=== PATIENT | male | born 1990 | race Caucasian/White ===

== ENCOUNTER 2018-11-01 18:07 | Emergency (ER) | payer BC, OTHER ==
[2018-11-01 18:17] VITALS: BP 109/73; RESP 16; TEMP 98.5; O2SAT 99
--- NOTE | 2018-11-01 19:06 | ED PDOC ---
HPI: CCC, URI, Sore Throat Time Seen by Provider: 11/01/18 18:14 Chief Complaint (Nursing): Chest Pain Chief Complaint (Provider): Cough History Per: Patient History/Exam Limitations: no limitations Onset/Duration Of Symptoms: Days (over 7x days) Current Symptoms Are (Timing): Still Present Associated Symptoms: Other (chest pain with coughing) Severity: Moderate Additional Complaint(s): 28 year old male with no past medical history presents to the ED for an evaluation of a cough productive of sputum, ongoing for over 7x days. Patient states that yesterday, he began to develop bilateral chest pain, intermittent, present only with cough. Patient states that the cough worsened today, prompting ED visit. Patient denies having fevers, hemoptysis, shortness of breath, weakness, leg pain, and rashes. PMD: None provided Past Medical History Reviewed: Historical Data, Nursing Documentation, Vital Signs Vital Signs: Last Vital Signs Temp 98.5 F 11/01/18 18:17 Pulse 63 11/01/18 18:17 Resp 16 11/01/18 18:17 BP 109/73 11/01/18 18:17 Pulse Ox 99 11/01/18 18:17 LUCHO report viewed?: Yes - Medical History PMH: No Chronic Diseases - Surgical History Surgical History: No Surg Hx - Family History Family History: States: No Known Family Hx - Social History Current smoker - smoking cessation education provided: Yes (6x cigarettes daily for 7x years) Alcohol: None Drugs: Denies - Immunization History Hx Tetanus Toxoid Vaccination: No (UNKNOWN) - Home Medications Home Medications: Ambulatory Orders Medication Instructions Recorded Cephalexin [Keflex] 500 mg PO QID #20 cap 07/04/14 Albuterol HFA [Ventolin HFA 90 2 puff IH [id number] PRN #120 puff 11/01/18 mcg/actuation (8 g)] Azithromycin [Zithromax] 250 mg PO DAILY #6 tab 11/01/18 Promethazine DM [Phenergan DM 5 - 10 ml PO Q8 PRN #120 ml 11/01/18 Syrup] - Allergies Allergies/Adverse Reactions: Allergies Allergy/AdvReac Type Severity Reaction Status Date / Time No Known Allergies Allergy Verified 11/01/18 18:08 Review of Systems ROS Statement: Except As Marked, All Systems Reviewed And Found Negative Constitutional: Negative for: Fever Cardiovascular: Positive for: Chest Pain (bilateral chest pain, intermittent, present only with cough) Respiratory: Positive for: Cough, Sputum. Negative for: Shortness of Breath, Hemoptysis Musculoskeletal: Negative for: Leg Pain Neurological: Negative for: Weakness Physical Exam - Reviewed Nursing Documentation Reviewed: Yes Vital Signs Reviewed: Yes - Physical Exam Appears: Positive for: Well, Non-toxic, No Acute Distress Head Exam: Positive for: ATRAUMATIC, NORMOCEPHALIC Eye Exam: Positive for: Normal appearance, EOMI, PERRL ENT: Positive for: Normal ENT Inspection. Negative for: Pharyngeal Erythema Cardiovascular/Chest: Positive for: Regular Rate, Rhythm Respiratory: Positive for: Normal Breath Sounds. Negative for: Respiratory Distress Neurologic/Psych: Positive for: Alert, Oriented (3x) - ECG ECG: Positive for: Interpreted By Me, Viewed By Me ECG Rhythm: Positive for: Sinus Bradycardia. Negative for: ST/T Changes Rate: 47 O2 Sat by Pulse Oximetry: 99 (RA) Pulse Ox Interpretation: Normal - Radiology X-Ray: Interpreted by Me, Viewed By Me X-Ray Interpretation: No Acute Disease Medical Decision Making Medical Decision Makin:14 Initial impression: 28 year old male with a cough Initial plan: * XRay chest * EKG * reevaluation 19:04 XRay chest read and reviewed by me. No acute diseases EKG read and reviewed by me Sinus bradycardia at 47 beats per minute. No ST/T wave changes. Patient advised to stop smoking and to follow up with [facility], and return to ED if symptoms persist or worsen. Scribe Attestation: Documented by Cherelle Regalado, acting as a scribe for Terrance Aguilar Provider Scribe Attestation: All medical record entries made by the Scribe were at my direction and personall y dictated by me. I have reviewed the chart and agree that the record accurately reflects my personal performance of the history, physical exam, medical decision making, and the department course for this patient. I have also personally directed, reviewed, and agree with the discharge instructions and disposition. Disposition - Clinical Impression Clinical Impression: Acute bronchitis - Patient ED Disposition Is Patient to be Admitted: No - Disposition Referrals: [facility] [Outside] Disposition: Routine/Home Disposition Time: 19:04 Condition: STABLE Additional Instructions: STOP SMOKING! FOLLOW UP WITH [facility] FOR FURTHER EVALUATION. RETURN TO ED IMMEDIATELY IF SYMPTOMS WORSEN BRIANNE LOVE, thank you for letting us take care of you today. Your provider was Gauri Garcia MD and you were treated for CHEST PAIN. The emergency medical care you received today was directed at your acute symptoms. If you were prescribed any medication, please fill it and take as directed. It may take several days for your symptoms to resolve. Return to the Emergency Department if your symptoms worsen, do not improve, or if you have any other problems. Please contact your doctor or call one of the physicians/clinics you have been referred to that are listed on the Patient Visit Information form that is included in your discharge packet. Bring any paperwork you were given at discharge with you along with any medications you are taking to your follow up visit. Our treatment cannot replace ongoing medical care by a primary care provider outside of the emergency department. Thank you for allowing the [facility] team to be part of your care today. If you had an X-Ray or CT scan: A Radiologist will review the ED reading if any change in treatment is needed we will contact you. If you had a blood, urine, or wound culture: It will take several days for the results, if any change in treatment is needed we will contact you. If you had an STI test: It will take 48 hours for the results. Please call after 1 week if you have not heard back. Prescriptions: Albuterol HFA [Ventolin HFA 90 mcg/actuation (8 g)] 2 puff IH [id number] PRN #120 puff PRN Reason: Cough or wheezing Azithromycin [Zithromax] 250 mg PO DAILY #6 tab Promethazine DM [Phenergan DM Syrup] 5 - 10 ml PO Q8 PRN #120 ml PRN Reason: Cough Instructions: Acute Bronchitis, Adult (DC), Quitting Smoking Forms: [facility] (Cam[place]onian), [facility] ED School/Work Excuse
[2018-11-01 19:21] VITALS: PULSE 47
--- NOTE | 2018-11-02 08:38 | RAD ---
Date of service: 11/01/2018 HISTORY: Cough COMPARISON: No prior. TECHNIQUE: Chest PA and lateral FINDINGS: LINES AND TUBES: None. LUNG AND PLEURA: The lungs are well inflated and clear. No pleural effusion or pneumothorax. HEART AND MEDIASTINUM: The heart is not enlarged. No aortic atherosclerotic calcification present. The hilar and mediastinal contours are within normal limits. SKELETAL STRUCTURES: The bony structures are within normal limits for the patient's age. VISUALIZED UPPER ABDOMEN: Normal. OTHER FINDINGS: None. IMPRESSION: No active pulmonary disease.
== END 2018-11-01 19:10 | disposition home or self-care (01) ==
LOC: H.ER 18:07
DX: J20.9 Acute bronchitis, unspecified (principal); F17.210 Nicotine dependence, cigarettes, uncomplicated